=== PATIENT | male | born 1985 | race American Indian/Alaskan Native ===

== ENCOUNTER 2021-02-04 20:07 | Emergency (ER) | payer OTHER ==
--- NOTE | 2021-02-04 21:51 | Emergency Department Report ---
ED Abdominal Pain HPI - General Chief Complaint: Back Pain/Injury Stated Complaint: R FLANK PAIN,POSS KIDNEY STONE PUI?: No Time Seen by Provider: 02/04/21 21:15 Source: patient, EMS Mode of arrival: Ambulatory Limitations: No Limitations - History of Present Illness Initial Comments: Patient is a 35-year-old male who presents emergency room with complaints of right flank pain. Patient states that his right flank pain started approximately 2 days ago. Patient states the pain is worsening. Patient states the pain is severe. Patient states he has a history of kidney stone. Patient dates his last kidney stone was on the right side and was 4 years ago. Patient states he does not see a urologist. Patient denies fever and chills. Patient complains of nausea vomiting. Patient states whenever he has kidney stones pain is so severe it caused him to be nauseous and vomit. Patient states he has a primary care. Patient states he has history of prediabetes. Patient denies fever and chills. Patient denies diarrhea. Patient denies constipation. Patient denies dysuria. Patient denies penile discharge. Patient denies recent travel. Patient denies recent international travel. Patient denies exposure to the novel coronavirus. Patient denies sick contacts. Patient denies fever and chills. Patient denies cough. Patient denies diarrhea. Patient denies coming in contact with anybody with symptoms of the novel coronavirus. MD Complaint: flank pain -: Sudden Location: R flank Radiation: none Migration to: no migration Severity: severe Severity scale (0 -10): 10 Quality: stabbing Consistency: constant Improves With: rest Worsens With: movement Associated Symptoms: nausea, vomiting. denies: diarrhea, fever, chills, constipation, dysuria, hematemesis, hematochezia, melena, hematuria, anorexia, syncope - Related Data Previous Rx's Medication Instructions Recorded Last Taken Type Acetaminophen/Codeine [Tylenol 1 tab PO Q4HR PRN #10 tablet 02/05/21 Unknown Rx /Codeine # 3 tab] Ciprofloxacin HCl 500 mg PO BID 10 Days #20 tablet 02/05/21 Unknown Rx Ondansetron [Zofran Odt] 4 mg PO Q6HR PRN #12 tab.rapdis 02/05/21 Unknown Rx Tamsulosin [Flomax] 0.4 mg PO QDAY 14 Days #14 cap 02/05/21 Unknown Rx Allergies Allergy/AdvReac Type Severity Reaction Status Date / Time No Known Allergies Allergy Verified 02/04/21 22:47 ED Review of Systems ROS: Stated complaint: R FLANK PAIN,POSS KIDNEY STONE Other details as noted in HPI Constitutional: denies: chills, fever Eyes: denies: eye pain, eye discharge, vision change ENT: denies: ear pain, throat pain Respiratory: denies: cough, shortness of breath, wheezing Cardiovascular: denies: chest pain, palpitations Endocrine: no symptoms reported Gastrointestinal: as per HPI, nausea, vomiting. denies: diarrhea Genitourinary: denies: urgency, dysuria Musculoskeletal: denies: back pain, joint swelling, arthralgia Skin: denies: rash, lesions Neurological: denies: headache, weakness, paresthesias Psychiatric: denies: anxiety, depression Hematological/Lymphatic: denies: easy bleeding, easy bruising ED Past Medical Hx - Past Medical History Previous Medical History?: Yes Additional medical history: Prediabetes - Surgical History Past Surgical History?: No - Family History Family history: no significant - Social History Smoking Status: Never Smoker Substance Use Type: None - Medications Home Medications: Home Medications Medication Instructions Recorded Confirmed Last Taken Type Acetaminophen/Codeine [Tylenol 1 tab PO Q4HR PRN #10 tablet 02/05/21 Unknown Rx /Codeine # 3 tab] Ciprofloxacin HCl 500 mg PO BID 10 Days #20 tablet 02/05/21 Unknown Rx Ondansetron [Zofran Odt] 4 mg PO Q6HR PRN #12 tab.rapdis 02/05/21 Unknown Rx Tamsulosin [Flomax] 0.4 mg PO QDAY 14 Days #14 cap 02/05/21 Unknown Rx ED Physical Exam - General Limitations: No Limitations General appearance: alert, in no apparent distress - Head Head exam: Present: atraumatic, normocephalic - Eye Eye exam: Present: normal appearance - ENT ENT exam: Present: mucous membranes moist - Neck Neck exam: Present: normal inspection - Respiratory Respiratory exam: Present: normal lung sounds bilaterally. Absent: respiratory distress - Cardiovascular Cardiovascular Exam: Present: regular rate, normal rhythm. Absent: systolic murmur, diastolic murmur, rubs, gallop - GI/Abdominal GI/Abdominal exam: Present: soft, tenderness (Right flank tenderness), normal bowel sounds - Rectal Rectal exam: Present: deferred - Extremities Exam Extremities exam: Present: normal inspection - Back Exam Back exam: Present: normal inspection, tenderness, CVA tenderness (R). Absent: CVA tenderness (L) - Neurological Exam Neurological exam: Present: alert, oriented X3 - Psychiatric Psychiatric exam: Present: normal affect, normal mood - Skin Skin exam: Present: warm, dry, intact, normal color. Absent: rash ED Course - Reevaluation(s) Reevaluation #1: Patient states his pain is better. Patient has finished his IV fluids. 02/05/21 00:17 Reevaluation #2: Patient states he is pain-free. I discussed all results and clinical findings with patient. I discussed plan of care with patient. Patient agrees with plan of care. Patient is stable for discharge. Patient will be discharged home. Patient given discharge instructions. Patient voiced understanding of discharge instructions. 02/05/21 01:19 ED Medical Decision Making - Lab Data Result diagrams: 02/04/21 22:04 02/04/21 22:04 - Radiology Data Radiology results: report reviewed CT ABDOMEN AND PELVIS WITHOUT CONTRAST INDICATION: Abdominal Pain CONTRAST: Without IV COMPARISON: None available. All CT scans at this location are performed using CT dose reduction for ALARA by means of automated exposure control. FINDINGS: Lung bases are clear of infiltrates. No pneumoperitoneum is seen. Gallbladder and bile ducts appear within normal limits. No abdominal masses are seen. No lymphadenopathy is noted. No free fluid is seen. No evidence of bowel obstruction is noted. Appendix appears within normal limits. No inflammatory changes are seen. Minimal left nephrolithiasis is seen with a 2 mm calculus in the midportion. No right renal calculi are noted. The right renal collecting system is mildly prominent as is the right ureter in its upper portion with edema around the right ureter. In the upper right ureter just above the iliac crest level, a 6 mm calculus is located. Remainder of the ureters appear within normal limits. Urinary bladder is poorly distended for evaluation. Prostate and seminal vesicles appear within normal limits. IMPRESSION: 1. Mildly obstructing upper right ureteral calculus 2. Minimal left nephrolithiasis - Medical Decision Making Patient is a 35-year-old male presents emergency room with complaints of right flank pain. Patient had labs done which were essentially unremarkable except for pyuria and elevated WBC. Patient's WBC is most likely elevated due to pain and nausea vomiting. Patient had a CT scan done which was significant for renal stones. Patient denies any other findings on CT scan. Patient given IV fluids, Dilaudid, Zofran and Toradol and the patient responded well. Patient pain decreased. Patient essentially pain-free upon discharge. Patient stable for discharge. Patient not require any further emergency medical service. Patient does not require inpatient service. Patient discharged home. Patient given discharge instructions. I discussed all results and clinical findings with patient. I discussed plan of care with patient. Patient agrees with plan of care. Patient is stable for discharge. Patient will be discharged home. Patient given discharge instructions. Patient voiced understanding of discharge instructions. - Differential Diagnosis Renal stone, UTI, Critical care attestation.: If time is entered above; I have spent that time in minutes in the direct care of this critically ill patient, excluding procedure time. ED Disposition Clinical Impression: Renal stone, Right flank pain UTI (urinary tract infection) Qualifiers: Urinary tract infection type: acute cystitis Hematuria presence: with hematuria Qualified Code(s): N30.01 - Acute cystitis with hematuria Disposition: HOME / SELF CARE / HOMELESS Is pt being admited?: No Does the pt Need Aspirin: No Condition: Stable Instructions: Kidney Stones, Flank Pain, Adult, [id number], Urinary Tract Infection, Adult, [id number] Additional Instructions: Patient to follow-up with primary care in 2 to 3 days. Patient to follow-up with urologist in 2 to 3 days. Patient to rest. Patient to increase water. patient to take Tylenol or ibuprofen as needed for pain. Patient to take meds as directed. Patient to return to the ER if condition worsens, changes or new symptoms arise. Prescriptions: Ciprofloxacin HCl 500 mg PO BID 10 Days #20 tablet Tamsulosin [Flomax] 0.4 mg PO QDAY 14 Days #14 cap Acetaminophen/Codeine [Tylenol /Codeine # 3 tab] 1 tab PO Q4HR PRN #10 tablet PRN Reason: Pain Ondansetron [Zofran Odt] 4 mg PO Q6HR PRN #12 tab.rapdis PRN Reason: Nausea And Vomiting [facility]errals: [facility] [Primary Care Provider] - 2-3 Days CHUCKIE DEVI MD [Staff Physician] - 2-3 Days SILVIO GARCIA MD [Staff Physician] - 2-3 Days Time of Disposition: 01:23
[2021-02-04] MEDS ORDERED: HYDROmorphone 1 MG/1 ML INJ IV NR (21:52)
[2021-02-04] MEDS ORDERED: ONDANSETRON 4 MG/2 ML INJ IV NR (21:52)
[2021-02-04] MEDS ORDERED: SODIUM CHLORIDE 0.9% 1000 ML 1,000 ML IV ONE (21:52)
[2021-02-04] MEDS ORDERED: KETOROLAC 30 MG/1 ML INJ IV NR (21:52)
[2021-02-04 22:23] LABS: Mean Corpuscular HGB Conc 34 % (32-34); Mean Corpuscular Volume 89 fl (84-94); Platelet Count 198 K/mm3 (140-440); Red Blood Count 5.28 M/mm3 (3.65-5.03); Red Cell Distribution Width 13.3 % (13.2-15.2)
[2021-02-04 22:40] LABS: Alanine Aminotransferase 16 units/L (7-56); Albumin 4.7 g/dL (3.9-5); BUN/Creatinine Ratio 11; Blood Urea Nitrogen 11 mg/dL (9-20); Calcium 9.7 mg/dL (8.4-10.2); Hemolysis Index 5
[2021-02-04 22:54] LABS: Bilirubin,Direct < 0.2 mg/dL (0-0.2)
--- NOTE | 2021-02-04 23:20 | Cat Scan Report ---
CT ABDOMEN AND PELVIS WITHOUT CONTRAST INDICATION: Abdominal Pain CONTRAST: Without IV COMPARISON: None available. All CT scans at this location are performed using CT dose reduction for ALARA by means of automated e xposure control. FINDINGS: Lung bases are clear of infiltrates. No pneumoperitoneum is seen. Gallbladder and bile duct s appear within normal limits. No abdominal masses are seen. No lymphadenopathy is noted. No free flu id is seen. No evidence of bowel obstruction is noted. Appendix appears within normal limits. No infl ammatory changes are seen. Minimal left nephrolithiasis is seen with a 2 mm calculus in the midportion. No right renal calculi a re noted. The right renal collecting system is mildly prominent as is the right ureter in its upper p ortion with edema around the right ureter. In the upper right ureter just above the iliac crest level , a 6 mm calculus is located. Remainder of the ureters appear within normal limits. Urinary bladder i s poorly distended for evaluation. Prostate and seminal vesicles appear within normal limits. IMPRESSION: 1. Mildly obstructing upper right ureteral calculus 2. Minimal left nephrolithiasis Signer Name: Pierre Baker MD Signed: 02/04/2021 11:15 PM Workstation Name: [id number]
[2021-02-05 01:04] LABS: Bilirubin,Urine NEG (Negative); Blood,Urine LG (Negative); Color,Urine Yellow (Yellow); Mucus,Urine 3+ /HPF
[2021-02-05 01:05] LABS: RBC,Urine > 182.0 /HPF (0.0-6.0)
[2021-02-05 02:13] LABS: Total Cells Counted 100
[2021-02-05 02:14] LABS: Platelet Estimate Consistent w Auto; RBC Morphology Normal; Toxic Granulation 1+
[2021-02-05 02:20] VITALS: BP 124/68
== END 2021-02-05 02:20 | disposition home or self-care (01) ==
LOC: ED 20:07
DX: N20.0 Calculus of kidney (principal); N39.0 Urinary tract infection, site not specified; R73.03 Prediabetes; Z87.442 Personal history of urinary calculi
CPT/HCPCS: 36415; 74176; 80048; 80076; 81001; 85007; 85025; 87086; 96361; 96374; 96375; 99284; J1170; J1885; J2405; J7030